=== PATIENT | male | born 1960 | race Caucasian/White ===

== ENCOUNTER 2017-11-02 01:22 | Inpatient (IN) | payer OTHER ==
--- NOTE | 2017-10-28 16:45 | PN- Neurosurgical ---
Surgical Brief Attending Note Brief Attending Note: 57-year-old right-handed gentleman seen in consultation from Jelani Salomon MD on 10/19/2017. I am seeing him for mechanical back pain associated with severe claudication. Since June 2016 he has been complaining of mechanical back pain radiating into his thighs, worse on the left than on the right. He is admitted for multiple years episode of back pain with these were short in duration and resolved rapidly which is not the case for this present episode. Of the greater part of his symptoms on his legs, worse with activity, standing and walking, somewhat improved with rest He has had 2 epidurals at L3 4 which did seem to improve before. Of time. Physical therapy and chiropractic treatment without relief His review of systems negative for bowel or bladder dysfunction Past medical history apart from usual childhood disorders is positive for hypertension and hypercholesterolemia He has no allergies to medication. He is taking metoprolol lisinopril atorvastatin Zetia. He does not have sleep apnea. He quit smoking 2 months ago has 1 drink a day There is a family history of cancer in his mother, lung cancer in his father, cancer in a sister Examination he stands 510 and weighs 226 pounds. He is a slightly guarded gait and posture. There is limitation of bending to about 15-20 hyperextension to about 20. He is able to stand on heels and tiptoes. Motor strength is 5 over 5 in all groups. Sensory examination is within normal limits. The tendon reflexes are trace present at the knee with enhancement trace present at the ankles toes are downgoing. There is negative straight leg raising. He is tender to palpation of the sacroiliac region, worse on the left than the right He has a combination of mechanical back pain and an L4 radiculopathy on the left L3 radiculopathy bilaterally. CT scan shows grade 1 retrolisthesis L2 3, diffuse osteophyte complex and facet arthropathy bilaterally using the severe canal stenosis and severe bilateral foraminal stenosis. At L3 4 and as a large hypertrophic facet on the left with severe central canal stenosis and severe left and moderate to severe right foraminal stenosis is being admitted for decompressive laminectomy L2 3 L3 4 to be followed with fusion Thank you for this consultation
[~2017-11-02] VITALS: Ht 177.8 cm; Wt 103.9 kg
[~2017-11-02 01:22] MED LIST: ATORVASTATIN CA80 M1 PO; FLOMAX0.4 M1 PO; LISINOPRIL40 M1 PO; TOPROL XL25 M1 PO; ZETIA10 M1 PO
[2017-11-02 14:13] LABS: ABSOLUTE BASOPHIL COUNT 0 /CUMM (0.0-0.2); ABSOLUTE EOSINOPHIL COUNT 0 /CUMM (0.0-0.7); ABSOLUTE GRANULOCYTE CT 13.5 /CUMM (1.4-6.5); ABSOLUTE LYMPH COUNT 0.5 /CUMM (1.2-3.4); ABSOLUTE MONOCYTE COUNT 0.3 /CUMM (0.10-0.60); BASOPHIL % 0.1 % (0.0-2.0); EOSINOPHIL % 0.1 % (0-5); HEMATOCRIT 40.6 % (42-52); MEAN CORPUSCULAR HGB 33.2 PG (27.0-31.0); MEAN CORPUSCULAR HGB CONC 34.2 G/DL (33.0-37.0); MEAN PLATELET VOLUME 7.5 FL (7.4-10.4); PLATELET COUNT 251 /CUMM (130-400); RBC DISTRIBUTION WIDTH 12.7 % (11.5-14.5); RED BLOOD CELL CT 4.18 /CUMM (4.70-6.10); WHITE BLOOD CELL COUNT 14.3 /CUMM (4.8-10.8)
[2017-11-02 14:29] LABS: GRANULOCYTE % 94.2 % (42.2-75.2)
--- NOTE | 2017-11-02 15:28 | Operative Report ---
Operative/Inv Procedure Report Surgery Date: 11/02/17 Name of Procedure: #1 decompressive lumbar laminectomy L2 3 L3 4 #2 left medial facetectomy L2-3 right L3 4 #3 preparation of space for fusion L2-3 #4 insertion of cage L23 As secondary #5 preparation of space for fusion L3 4 #6 insertion of cage L3 4 right sided #7 stealth registration #8 stealth guided insertion of pedicle screws L2 L3-L4 bilateral #9 bilateral arthrodesis L2 through L4 #10 installation of vancomycin powder Pre-Operative Diagnosis: Lumbar spinal stenosis L2 3 L3 4 Post-Operative Diagnosis: Same Estimated Blood Loss: 1700 Surgeon/Sock Mender: Aime CURTIS,Jelani Rouse(co-surgeon) MD Myrick Michael Anesthesia: general endotracheal tube Monitors: neurophysiology IV Fluids: see anesthesia note Implants: see 's note At L2-3,[id number] cage Urine Output: satisfactory Drains: 2 hemovacs Specimens: none Microbiology: none Tourniquet: none Complications: none Condition: stable Operative Indication: 57-year-old man with significant back pain worsens with the thigh pain over the last year with some improvement with epidural injections but failure of all other conservative measures. Indications for surgery alternative risks and possible complication were discussed at length. Patient elected to have surgery performed O guarantees given all questions answered Operative/Procedure Note Note: The patient was brought in supine intubated supine placed on the Ang table and all surfaces were well verified to be padded After receiving 2 g of intravenous antibiotics and 8 mg of Decadron the back was prepped and draped in usual sterile manner infiltrated with 10 mL of Xylocaine and epinephrine and sharp dissection was carried down to the aponeurosis which was taken down on both sides of the midline and a subperiosteal elevation the muscles performed. A marker was placed under the lamina of 2 and under the lamina of 3 and confirm the positions following this the spinous processes of 2 and 3 were removed the lamina of 2 was completely removed with 3 and 4 mm Kerrisons and the lamina of 3 likewise the medial facets were attacked then with 3 mm Kerrisons and the amount of stenosis was then taken down and a noticeable facetectomy was accomplished at L2-3 on the left side at L3-4 on the right side the dural sac was completely decompressed and significant foraminotomy was accomplished on both sides at both levels Following this attention was directed towards the L2-3 space. DBF graft on was reconstituted with blood We Carmen retraction the dural sac was retracted the disc space entered with 11 blade knife and then using a 6 mm dilator followed by 8 mm dilator then by a 9 mm dilator and ultimately a 10 mm dilator the space was increased to its maximum safe of value. Cutters were used to remove disc material and soft tissue and so was aggressive curettes to prepare the space for fusion. Following this after packing the space with autologous bone and DBF graft on under continuous C-arm and electrophysiological monitoring a 10 x 24 x 4 fuse cage of titanium packed with DBF graft on and bone was inserted in the standard fashion without any complications Following this the same procedure was repeated at the L3 4 space coming all this time on from the right side and C Jelani Salomon MD's note for that following this the O arm was brought in and after some issues with opening closing of the O arm we were able after registering versus the instruments for the Stealth used to insert pedicle screws at L3-L4 and L5 bilaterally and please see Jelani Salomon MD's note for this following this and verified electrophysiologically to be satisfactory both a combination of bone and DBF and pro Genex were used in both gutters after drilling to prepared of space for fusion on the transverse processes of 2 and 3 and 4 bilaterally and the medial facets stenosis was accomplished 2 Hemovacs were were placed and the patient closed there were no intraoperative complications sponges and count were correct blood loss was approximately 1800 mL. Neurophysiological monitoring remained normal at the end of the case Findings: All tight stenosis, hard disc bilaterally at both levels Discharge Disposition: PACU Additional Comments: Nonenone CC: Aime CURTIS,Jelani Rouse; Michelle CURTIS,Vega Bryant
--- NOTE | 2017-11-02 18:06 | RADIOLOGY REPORT ---
EXAMINATION: CR ABDOMEN/INTRAOPERATIVE FLUOROSCOPY CLINICAL INDICATION: Lumbar spine fusion L2-L4 with o-arm. COMPARISON: Lumbar spine films dated 08/22/2016. TECHNIQUE/FINDINGS: Fluoroscopic equipment was dedicated to the operating room for the performance of an intraoperative procedure. Several (10) spot films were acquired and are archived in PACS. Please refer to operative notes for procedural detail. FLUOROSCOPY TIME: 1 minute 33 seconds. IMPRESSION: Administrative dictation for intraoperative fluoroscopy and image archiving in PACS. Please refer to operative notes for details.
[2017-11-02 18:07] VITALS: BP 104/62
[2017-11-02 20:47] VITALS: BP 106/60
--- NOTE | 2017-11-02 22:31 | Operative Report ---
Operative/Inv Procedure Report Surgery Date: 11/02/17 Name of Procedure: 1) L2 Bilateral Decompressive Hemilaminectomies, L2-L3 Posterobilateral Osseous Element Lateral Recess And Foraminal Decompression (Bilateral Partial Medial Undercutting Facetectomies And Bilateral Medial Expanding Foraminotomies) , Lateral Recess Epidural Neurolysis As Needed And Complete Posterobilateral Neural Element Decompression (Ramez/Aime) 2) L3 Bilateral Decompressive Hemilaminectomies, L3-L4 Posterobilateral Osseous Element Lateral Recess And Foraminal Decompression (Bilateral Partial Medial Undercutting Facetectomies, Right Medial Expanding Foraminotomy And Left Partial Unroofing Foraminotomy), Lateral Recess Epidural Neurolysis As Needed, And Left Decompressive Discectomy For Complete Posterobilateral Neural Element Decompression (Ramez/Aime) 3) L2-L3 Multicolumn (Anterior Column Interbody And Posterobilateral Column Osteoarticular Element/Intertransverse Process) Instrumented Fusion Using Morselized Nonstructural Locally Harvested Autograft Augmented With Nonstructural Allograft Substitute Osteopromotive Material (Aime-Ramez [facility]- Sur[facility]) 4) L3-L4 Multicolumn (Anterior Column Interbody And Posterobilateral Column Osteoarticular Element/Intertransverse Process) Instrumented Fusion Using Morselized Locally Harvested Autograft Augmented With Nonstructural Allograft Substitute Osteopromotive Material (Aime-Ramez [facility]) 5) L2-L3 Implantation Of Left Midline Interbody Cage Instrumentation ( Aime/Aracelisk) 6) L3-L4 Implantation Of Left Parmedian Interbody Cage Instrumentation ( Aime/Aracelisk) 7) L2-L4 Implantation Of Posterobilateral Rhljwef-Tgvgd-Qcp Segmental Instrumentation (Aime/Aracelisk) 8) L2-L4 Stealth Frameless Stereotactic Computer-Assisted Spinal Navigational Placement Of Posterobilateral Pedicle Screw Instrumentation ( Aime) 9) Preparation And Implantation Of L2-L4 Interbody And Posterobilateral Intertransverse Process Nonstructural Allograft Substitute Osteopromotive Material (Aime) 10) [place], Preparation And Implantation Of L2-L4 Interbody And Posterobilateral Intertransverse Process Nonstructural Morselized Local Autograft (Aime) Pre-Operative Diagnosis: Primary Surgically Treated Diagnoses: 1) L2-L3 And L3-L4 Bilateral (Left Greater Than Right) Lumbar Intervertebral Disc Disorder (Degenerative Disk Herniation) With Directly Associated Moderate Left Mid-Lumbar Distribution Proximal Lower Extremity Radiculopathy (Anterior Thigh Radiating Pain And Subjective Numbness Without Motor Deficit Or Exacerbation On Provocative Testing Generally Consistent With The L3 Traversing L2-L3 And Exiting L3-L4 Nerve Root Radicular Distribution) (* = Refer Here As Well As Elsewhere In This Diagnosis List And Document For Detailed Radiculopathy Symptom And Finding Description) 2) L2-L3 And L3-L4 Bilateral (Left Greater Than Right) Lumbar Spondylosis With Secondarily Directly Associated Moderate Bilateral (Left Greater Than Right ) Mid-Lumbar Distribution Lower Extremity Radiculopathy* 3) L2-L3 And L3-L4 (L2-L3 Left And L3-L4 Bilateral Left Greater Than Right) Severe Bilateral (Left Greater Than Right) Zone (Moderate Bilateral Recess And Severe Bilateral Foraminal Osseous And Hypertrophic Degenerative Soft Tissue, Exacerbating Degenerative Herniated Nucleus Pulposus And Degenerative Fibrotic Soft Tissue) Lumbar Spinal Stenosis 4) L2-L3 And L3-L4 Severe Degeneration Of Lumbar Intervertebral Discs Associated With Significant Disk Space Collapse, Vacuum Phenomenon, Bilateral ( Left Greater Than Right) Vertical Foraminal Narrowing Contributing To Osseous Foraminal Stenosis, Bordering Endplate And Vertebral Body MRI (Modic) Signal Changes As Well As Severe Radiographic And CT Endplate And Vertebral Body Spondylotic, Sclerotic And Erosive Radiologic Findings With Clinical Features In Addition To The Associated Radiculopathy Described Elsewhere In This Diagnosis List 5) L2-L3 And L3-L4 (L2-L3 Right Greater Than Left Lateral Recess And Intraforaminal; L3-L4 Left Greater Than Right Lateral Recess, Intraforaminal And Extraforaminal Greater Than Central) Broad Based Intermediate-Sized Neurocompressive Degenerative Displacement Of Lumbar Intervertebral Disks Associated With Neural Element Encroachment As Well As Clinical Features Beyond The Radiculopathy Described Elsewhere In This Diagnosis List Including Contributing To The Soft Tissue Component Of Spinal Stenosis At The Herniation Levels 6) L2-L3 And L3-L4 Lumbar Spondylosis Associated With Clinical Features Beyond The Radiculopathy Described Elsewhere In This Diagnosis List 7) L2-L3 And L3-L4 Clinical And Radiologic Findings Consistent With Moderate And Clinically Significant Degenerative Spinal Segmental Instability Likely Associated With Exacerbation Of Bilateral Foraminal Encroachment And Positional Or Activity-Related Stenotic Symptoms Described Elsewhere In This Diagnosis List 8) Severe Activity And Functionally Limiting, Intermittently Disabling Mid- Lumbar Region Lower Back Pain 9) L3 Bilateral (Left Greater Than Right) Associated Proximal And Concurrent Distal Lower Extremity Radiculopathy* Including Some Features Likely Directly Associated And Other Features Likely Independent Of Concurrent Intervertebral Disc Disorders And Spondylosis (Described Elsewhere In This Diagnosis List) 10) 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 Motion Segment With Diffuse Bone On Bone Contact) Secondary Surgically Treated Diagnoses: 11) L2-L3, L3-L4, L4-L5 And L5-S1 Peridiscal Subchondral Endplate Level And S1 Intraosseous Vertebral Body Level Cystic Change 12) L2-L3 And L3-L4 Bilateral Degenerative And Inflammatory Lateral, Ventrolateral And Ventral Zone Lateral Recess, Foraminal And Disk Margin Adherent But Not Tethering Or Compressive Inflammatory And Degenerative Lumbar Epidural Fibrosis 13) L2-L3 And L3-L4 Bilateral Moderate Degenerative Lumbar Spinal Facet Osteoarthritis 14) L2-L3 And L3-L4 Bilateral Moderate Hypertrophic And Neurocompressive Partially Lateral Zone Stenosing Degenerative Lumbar Spinal Facet Osteoarthritis 15) L2-L3 And L3-L4 Bilateral Erosive Degenerative Lumbar Spinal Facet Arthropathy 16) L2-L3 And L3-L4 Bilateral Neurocompressive Degenerative Lumbar Spinal Facet Instability Associated With "Open Facet Sign", Subluxation (Retrolisthesis ) And Autopseudoarthrosis With Symptomatic Translational Frhs-Mi-Fand Micromotion Secondary Perioperatively Relevant Diagnoses: 17) Bilateral Concurrent Lower Extremity Distal (Extensor Hallucis Longus) Motor Deficit Possibly Physiolgic In This Patient Or Related To More Proximal Level Neurocompression 18) Severe Diffuse Lumbar Regional Spinal Degenerative Arthritis ( Spondylopathy) Comorbid Diagnoses: 19) Moderate Obesity By World Health Organization Criteria 20) Very High Body Mass Index (BMI = 33.4) Potentially Adversely Affecting Acute And Tariff Counsel Lumbar Spine General And Surgical Orthopaedic Treatment As Well As Surgical And Overall Health Outcomes Post-Operative Diagnosis: Same as preoperative diagnosis list with the addition of: Intraoperative Surgically Treated Diagnoses: 1) L2-L3 And L3-L4 Exacerbated Preoperative And New Intraoperative (Post- Decompression And Pre-Instrumentation) Significant Nulticolumn Structural Element Destabilization Secondary To Required Extensive Osseous Decompression Above And Beyond Preoperatively Documented Segmental Instability With Axial Disk Space Collapse Associated With Severe Increase In Transpedicular Foraminal Narrowing Requiring Acute Intraoperative Instrumentation For Stabilization, Transpedicular Foraminal Distraction And Height Yazidi As Well As For Optimization Of Fusion Potential, Overall Surgical And Functional Outcome Intraoperative And Postoperative Diagnoses Relevant To Postoperative Care: 1) L2-L3 And L3-L4 Potential Increased Postoperative (Post-Decompression, Post-Instrumentation And Pre-Arthrodesis) Microinstability Under Cyclic Loading Even With Multicolumn Instrumentation Indicating Early Postoperative Motion And Activity Limitation As Well As Circumferential Buttressed Lumbar Compression Orthosis Use For Optimized Symptom Control, Stabilization, Fusion, Postoperative Function And Overall Outcome 2) Expected Acute Postoperative Lumbar Region Pain Requiring Postoperative Intravenous Narcotic Analgesic Pain Medication And Inpatient Nursing Observation Following Complex And Extensive But Uncomplicated Multilevel Lumbar Decompression And Multicolumn Instrumented Fusion 3) Expected Acute Postoperative Lumbar Region Muscular Spasm Requiring Postoperative Muscle Relaxant Medication And Inpatient Nursing Observation Following Procedure Documented Above 4) L2 And L3 Laminar (And Adjacent Interlaminar) Level Acute Lumbar Region Bilateral Dorsal Central (Laminar) And Posterobilateral (Facet And Dorsal Foraminal Wall) Osseous Decompression Postprocedural Status 5) L2-L3 And L3-L4 Lumbar Spinal Region Early Postprocedural Instrumented Arthrodesis Status 6) Potential For Acceleration Of Bone Healing Relative To The Standard Healing Likelihood And Timecourse For The Extent (Number Of Levels) Of Arthrodesis Performed Due To The Multilevel Nature Of The Patient's Procedure, The Need For Partial Augmentation Of Fusion Mass Using Allograft Substitute Osteopromotive Material, Recent Smoking History, Diffuse Erosive Spinal Arthritic Process And Potential For Acute Cyclic Loading Microinstability As Noted Above In This Patient Whose Stated Goal (With Reasonable Postoperative Potential) Is To Return To Vigorous Function Following This Procedure All Of Which Are Indications For The Use Of An External Pulsed Electromagnetic Field Stimulation Device To Likely Optimize And Potentially Accelerate Osseous Fusion Formation Estimated Blood Loss: 1800 cc estimated blood loss with 1200 cc cell saver return Surgeon/Job Superintendent: DEANNA SMITH MD - Primary Admitting Orthopaedic Spine Co-Surgeon DONNIE MYRICK MD - Primary Consulting Neurological Spine Co-Surgeon Surgical Providers: Regarding Orthopaedic Spine Portion Of Procedure Dictated Here: Deanna Smith M.D. - Orthopaedic Spine Surgeon (Co-Surgeon/Primary Admitting Surgeon) Donnie Myrick M.D. - Neurosurgeon (Co-Surgeon/Job Superintendent Surgeon) See Neurosurgical Operative Report Regarding Surgical Provider Designation For Neurosurgical Spine Portion Of Procedure Anesthesia: general endotracheal tube Monitors: Standard general anesthesia and other perioperative monitoring was performed per anesthesia protocols. Standard Intraoperative EMG, SSEP and MEP electrophysiological monitoring was performed per protocol (NeuroAlert). Refer to anesthesia and intraoperative electrophysiological monitoring records for details. IV Fluids: Standard anesthesia perioperative fluid management was performed without requirement for additional or emergent fluid resuscitation. Refer to anesthesia and cell-saver records for details. Implants: Implants Placed: Posterolateral Lumbar Region Interbody Implants: [employer] F[employer] Titanium Posterolateral Interbody Cage Implants: 1 x 10 mm Height x 9 mm Width x 24.5 mm Depth x 4 Degree Lordosis On The Left At L2-L3 1 x 10 mm Height x 9 mm Width x 24.5 mm Depth x 4 Degree Lordosis On The Right At L3-L4 Posterobilateral Lumbar Region Transpedicular Transvertebral Implants: Anser Innovationa ATS System Posterobilateral Transpedicular Transvertebral Jwperzx-Acgov-Kue Construct: 1 x 6.5 mm Diameter x 60 mm Length Dual Thread Pitch Pedicle Screw On The Right At L4 1 x 6.5 mm Diameter x 55 mm Length Dual Thread Pitch Pedicle Screw On The Left At L4 2 x 6.5 mm Diameter x 55 mm Length Dual Thread Pitch Pedicle Screws One On Each Side At L3 2 x 5.5 mm Diameter x 55 mm Length Dual Thread Pitch Pedicle Screws One On Each Side At L2 2 x 4.75 mm Diameter x 60 mm Length [place]-Chrome Rods: One On Each Side Interconnecting The L2, L3 And L4 Pedicle Screws Graft Placed: Autograft Placed: Morselized Locally Harvested Autograft Harvested From: Resection Of L2 And L3 Spinous Processes L2 And L3 Interpedicular Bilateral Hemilaminectomies L2-L3 And L3-L4 Bilateral Facetectomies And Foraminotomies Placed At L2-L3 And L3-L4 In Anterior And Posterobilateral Columns Filling The Central Chamber Of Each Interbody Cage (At L2-L3 And L3-L4) In The Disk Space Anterior To And Surrounding Each Interbody Cage (At L2-L3 And L3-L4) In The Bilateral Intertransverse Posterolateral Spaces (From L2 To L4) Allograft Placed: Nonstructural Processed Allograft Substitute Osteopromotive Material Placed: Climeworks Gosper DBF (2 x 6 cc Containers = Total Of 12 cc) 3 cc Placed In Each Intervertebral Disk Space Anterior To The Cages At L2-L3 And L3-L4 3 cc Placed On Each Side Overlying Autograft In Each Posterolateral Intertransverse Space From L2 To L4 Urine Output: Refer to anesthesia records for details. Drains: Large bore (15 Ukrainian) subfascial DENEEN drains x 2 to medium bulb suction reservoir. Fenestrated portions of drain tubes placed in each posterolateral intertransverse space (lateral gutter) with unfenestrated portion through deep muscle, fascia, subcutaneous tissue, and skin of bilateral superolateral aspect of surgical site koehler without suture fixation. Specimens: Removed L2-L3 and L3-L4 lumbar disk fragments sent to pathology for analysis per hospital protocol. Complications: None Operative/Procedure Note Note: Preoperative Holding Area Assessment/Preparation: The patient was evaluated in the preoperative holding area shortly prior to surgery and no significant clinical changes or contraindications to the scheduled surgical procedure were evident compared to the normal preoperative baseline axial and radicular lumbar symptoms documented on office and clearance general, neurovascular, and musculoskeletal assessments. Specifically, he continues to report his originally presenting preoperative constant baseline and mechanically exacerbated axial pain along with subjective radiating bilateral proximal lower extremity pain and numbness localizing to the anterior thighs without significant objective physiologic or functional deficit on previous or current preoperative examinations. His only consistent deficit is a subtle bilateral and symmetrical extensor hallucis longus weakness which may be physiologic for this patient or possibly a subtle effect of traversing root compression at one of his more proximal intended operative levels. He has had neither significant subjective or objective improvement despite a prolonged and comprehensive conservative management treatment program with excellent compliance to the patient's maximal ability and tolerance. As in the office, he was otherwise neurovascularly and musculoskeletally intact in both lower extremities with no other new findings or reported exacerbation of his subjective symptoms. There were no new or clinically significant multiple, bilateral or sacral root distribution sensory, motor, abherent or hyperactive reflex, coordination, ambulatory or other functional reported or observed symptoms or signs on immediate preoperative examination to suggest acute neurological or musculoskeletal change, increase in lumbosacral region neural element compression or impending neurological deficit that would suggest or might be associated with potential increased neurological intraoperative risk or necessitate an alteration in the proposed treatment plan. The patient showed no signs of pulmonary obstruction, restriction, cough or other respiratory abnormality that might be associated with his history of smoking. The surgical plan and site were confirmed with the patient and preoperative paperwork was finalized. The region of the intended surgical site was cleansed, prepped and marked per protocol. The surgeons, anesthesia care team members, and operating room staff verified the patient identity, surgical procedure, and operative site as well as other clinical details with the patient in an initial documented preoperative confirmation (awake time out) prior to the administration of significant sedation or anesthesia. Prior to receiving any preoperative medications, the patient confirmed his NPO status since midnight. Surgical Procedure: Dr. Smith and Dr. Myrick were both present for and participated equally as co-surgeons in all clinically significant phases of the surgical procedure documented below as well as for all critical intraoperative and perioperative decisions and interventions. The set-up, positioning, frameless CT-referenced stereotactic analysis and guidance, disk space and posterobilateral osseous element fusion surface preparation and decortication, stabilization with implantation of multicolumn (interbody cage and posterobilateral pedicle-screw- linda construct) instrumentation, multicolumn (interbody and posterobilateral intertransverse-process space) arthrodesis and closure portions of the procedure are described in greatest detail in this operative report. Refer to Dr. Myrick s Neurosurgical operative report for additional details particularly regarding the electrophysiological monitoring, exposure, osseous and soft tissue decompressive (including bilateral hemilaminectomies, facetectomies and foraminotomies), epidural neurolysis, discectomy, osteophytectomy, and confirmation of neural element decompression portions of the procedure. Although the patient does meet the World Health Organization criteria for obesity (with BMI = 33.4 which may impact his perioperative care, prognosis and/ or outcome), his body habitus did not seem to add significantly to the complexity of the patients surgical care in this case and so, unless his postoperative care is made unexpectedly complex due to this factor, no procedural service modification will be designated. Set-Up/Positioning/Exposure - The patient was brought to the operating room in stable condition and underwent uncomplicated induction of general anesthesia, intubation, and placement of all appropriate monitors, lines, tubes and catheters without difficulty. Administration of 2 grams of IV Ancef based on patient body mass (102.5 kg) was given for surgical prophylaxis and was completed at least 30 and less than 60 minutes prior to making an incision. This antibiotic dose was repeated at four hour intervals throughout the procedure per standard operative protocols. Steroid medication (Decadron 4 mg IV) was requested by anesthesia for nausea prophylaxis, approved by the surgeon, and administered shortly after intubation. The patient was positioned prone on the Ang operating table in standard fashion for a mid-lumbar decompression, discectomy and multicolumn instrumented fusion taking care to protect and stabilize the spine during transfer, avoid positions of nerve stretch, pad all pressure points, and support the head without any pressure on the eyes using a foam head rest and head-holding frame. Electrophysiological monitoring electrodes were applied per standard monitoring protocol. The arms were abducted less than 90 degrees at the shoulders, flexed less than 90 degrees at the elbows and supported on well-padded arm-boards with additional foam padding from the axillary regions to the hands. All pressure points were either fully padded or suspended without any contact at all between pads. Baseline preoperative electrophysiological monitoring readings were obtained and no gross abnormalities were noted with no asymmetry or other finding identified to suggest previously undetected and occult compression or neurophysiologic deficit. A cross-table lateral fluoroscopic image was obtained with a skin marker in place to determine the optimal level for incision, to document optimized intraoperative lumbar alignment, and to confirm acceptable radiologic visualization as well as definitive numerical identification of the intended operative levels with sufficient detail down to the lower lumbar and lumbosacral junction regions throughout the procedure. The approach, exposure, hemostasis, retractor placement, fluoroscopic identification of intended operative level, laminar resection, facetectomy, foraminotomy, limited epidural neurolysis, osteophytectomy, decompressive discectomy and final neural element assessment portions of the procedure are dictated in greatest detail by Dr. Myrick in his Neurosurgery operative report and are only briefly summarized here. Refer to that document for additional details. The surgical field was prepped and draped using standard sterile technique with Duraprep, sterile towels, an Ioband incise drape and an edge- adhesive rectangular surgical field drape. Prior to beginning the procedure, the surgeons, anesthesia care team, and operating room staff again reviewed the patient identity, surgical procedure, operative site and other information specifically critical to the operative management of the patient in a final documented confirmation ("final time out") per standard hospital and [facility] protocol. In brief summary, after sterile prep and drape as described above, a midline surgical incision was mapped, marked with a sterile surgical marker, infiltrated with local anesthetic, and made using a #10 scalpel blade extending longitudinally from the palpated superior tip of the L1 spinous process to the superior tip of the L5 spinous process overlying the intended L1-L2, L2, L2-L3, L3 and L3-L4 operative laminar/vertebral and interlaminar/disk levels as well as the middle and inferior aspect of the L5 spinous process additionally required for optimal stereotactic reference frame fixation. Hemostasis was achieved using Bovie and Bipolar electrocautery as well as Aquamantys bipolar radiofrequency hydrothermal hemostatic vascular sealer beginning with the incision and continuing throughout the procedure with settings appropriate to each progressive level. The paramedian lumbosacral fascia was divided on both sides of the fluoroscopically localized L2, L3 and L4 spinous process tips as well as the interconnecting interspinous ligament segments between them using the Bovie electrocautery. Care was taken to preserve the midline interspinous ligamentous tissue complexes as much as possible at all levels until the initially dissected levels had been confirmed to be the intended operative levels by fluoroscopic localization. The dissection was then carried down the left side of the middle aspect and inferior margin of the L3 spinous process as well as the superior margin of the L4 spinous process to the medial laminar interface at the base of the spinous processes and finally extended laterally to expose the corresponding inferior L3 and superior L4 laminae as well as the intervening left L3-L4 interlaminar space at that level using straight and curved curettes. This dissection was extended laterally out to the medial margin of the facet capsule which was preserved. The dissected interlaminar space was marked with a Adam dissecting instrument placed under the inferior leading edge of the superior lamina and confirmed to be at the intended interspace on cross-table lateral fluoroscopic image. Intraoperative findings of multilevel mid- and lower lumbar moderate to severe degenerative disk disease, spondylosis and hypolordosis appeared unchanged from the preoperative radiologic studies and no obvious interval change or additional abnormality was noted. The overall alignment of the visualized lumbar spine on this intraoperative localization radiograph was noted to be otherwise normal and unchanged from preoperative office studies. Once the appropriate levels were fluoroscopically confirmed, the fascia was fully divided on both sides of the L2, L3 and L4 spinous process tips and dissection was continued bilaterally to fully expose the intended laminar ( inferior L1, complete L2 and L3 and superior L4) and interlaminar (L1-L2, L2-L3 and L3-L4) levels out to the capsules of the corresponding facet joints which were initially preserved on both sides. Bovie and Bipolar electrocautery as well as a Ramirez elevator were then used to dissect over the facet joints, down the lateral margins of the facets (taking care to maintain hemostasis of the faceteal vessels where necessary), over the dorsal surfaces of the L2, L3 and L4 transverse processes and over the L2-L3 and L3-L4 intertransverse membranes out to the lateral level of the transverse process tips. Once this dissection was completed, the lateral gutters were thoroughly irrigated, deep Gelpi retractors were placed for optimal exposure and the intertransverse regions were packed bilaterally with counted moist sponges. Attention was then turned to the midline decompression. Laminofacetectomy/Discectomy/Epidural Neurolysis/Neural Element Decompression - The lateral margin of the pars interarticularis of L2 and L3 were identified bilaterally so as to insure that the posterolateral osseous decompression did not approach, thin or destabilize these regions. The L2 and L3 spinous processes were debrided of periosteal soft tissue and attached interspinous ligament, resected en bloc at their bases and morselized for later reimplantation as local autograft. Bilateral hemilaminectomies were performed at both the L2 and L3 levels by piecemeal resection of the laminar bone using Kerrison rongeurs after dissecting under the leading edge with a curved curette to free any underlying adhesions. Where possible the ligamentum flavum was left in place during the osseous decompression as a protective layer and then later removed using Kerrison rongeurs to complete the dorsal central canal and dorsobilateral recess region decompression where the ligament contributed significantly to the neural impingement. 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 The epidural fibrosis appeared to be causing moderate tethering and likely some transient pistoning and/or longitudinal traction irritation to the traversing neural structures at these levels consistent with and likely contributing significantly to the patient's baseline and claudicating radiating symptoms. Untethering epidural neurolysis was therefore indicated and, in fact, necessary in order to adequately decompress and mobilize the neural elements. Fortunately, the patient's central compression was not as prominent as his lateral recess component and thus his dorsal thecal sac had only minimal adherent fibrosis providing a clear epidural plane for dissection into the more involved lateral recess zones. Before the extent of involvement and requirement for neurolysis could be determined, the osseous lateral recesses were decompressed by extending the posterolateral osseous resection to the moderately hypertrophic overhanging medial facets. A curved curette was used to dissect in the subperiosteal and pericapsular plane along the medial wall of the facet in the lateral recess of the canal. The medial facetectomy was then performed using Kerrison rongeurs. With the lateral recess better exposed and mostly decompressed of osseous ( hypertrophic medial facet) and soft tissue (hypertrophic posterolateral ligamentum) impingement the subperiosteal dissection could be safely continued down the medial wall of the pedicle to the ventrolateral floor of the canal. During this dissection the vertical extent, thickness, adherence and compliance (density and pliability) of the epidural fibrotic tissue could be better appreciated along with its contribution to neural element tethering and compression. The epidural fibrosis was clearly more extensive, causing more focal and diffuse compression and more likely contributing to symptoms than usual even for most similar, very degenerative but previously unoperated cases. This greater than usual involvement and effect was probably related to the patient's underlying spondylopathy. In fact, the degree of epidural fibrosis in this case was more in the average range of a revision case than a previously unoperated case. The neurolysis which was necessary extended into the ventral canal bilaterally and, along with the need for decompressive discectomy, required well above average duration and specialized skill of both surgeons compared to even a complex bilateral hemilaminectomy. On the other hand, the tethering was fairly focal, a dissection plane was available in the midline and there was no circumferential constriction requiring extensive and high risk complete epidural debridement and release of adherent fibrous tissue for decompression and therefore the neurolysis required to safely complete the remaining components of the procedure was felt to be within a reasonable range for a complex unoperated (similar to an average revision) decompression and was therefore considered as a reasonably included component of that procdeure without requiring a separately designated procedural service. Once the neural elements had been untethered from the lateral wall of the canal , several small areas of focal epidural adherent, dense and hypertrophic fibrotic compressive tissue had to be dissected from the thecal sac in the epidural plane and resected. This was successful in finally decompressing the dorsal and lateral surfaces of the neural structures as well as improving their compliance and decreasing longitudinal tension during retraction which was necessary to gain access to the disk space so as to successfully complete the interbody instrumented fusion portion of the procedure. With the lateral recess exposure complete and as the neural elements were being first mobilized, the exiting root was noted to be further tethered by fibrotic tissue into the medial foraminal exit zone. Fortunately, the subperiosteal plane which was previously defined within the lateral canal could be readily extended into the foraminal region using curved curettes for subperiosteal dissection and this allowed a more extensive, subtotal medial facetectomy and partial unroofing foraminotomy to be safely performed using Kerrison rongeurs for resection. Osseous decompression and periosteal untethering appeared sufficient to resolve any neural element tethering in this zone and so no additional higher risk epidural dissection was required. Gentle medial retraction revealed additional fibrotic tissue adherent to the ventral thecal sac and floor of the canal. Additional neurolysis was required in this ventrolateral zone to untether the neural elements from the underlying disk protrusion and mobilize the neural elements medially. This was accomplished using a Warrington 4 and Chandler curette. As with the other zones of neurolysis, this was significantly more complex than most (even very degenerative) cases but still felt to be within the scope of standard bilateral hemilaminectomy decompressive procedure. Once the neural elements were untethered, mobilized and safely retracted with a Love nerve root retractor, the lateral disk herniation could be appreciated causing elevation and ventral compression to both the exiting root in the foraminal exit zone and the traversing neural structures within the lateral canal consistent with preoperative MRI findings. The extensive compression in the bilateral recess and medial foraminal zones secondary to stenosis, disk herniation and epidural fibrosis was associated with hyperemia of the nerve root meninges, inflammation and irritation consistent with the severity, chronicity and poor response to conservative measures of the patient's static and claudicating symptoms and funcitonal deficits confirming the indications for surgery. All of these findings also suggested that improvement would have been unlikely with further conservative management and without surgical intervention. With the perineural dissection, neurolysis and exposure of the contained disk herniation fragments complete at both levels, the traversing nerve root and thecal sac was first gently and safely retracted using a Love nerve root retractor on the right at the lower of the two operative levels (the L3-L4 level ) so as to expose the disk space while protecting the neural elements. This exposure allowed safe annulectomy using a #11 scalpal blade followed by complete decompressive discectomy of the primary intraforaminal herniated fragment and any remaining loose or nonviable intradiscal fragments using standard technique with pituitary rongeurs. Epidural hemostasis was achieved using Bipolar electrocautery and gentle packing of the epidural space with small volume of Thrombin soaked Gelfoam held with Patties which also provided some medial retraction of the neural elements for optimal exposure of the disk space. All resected disk material was sent to pathology for analysis per hospital protocol. Before proceding with the decorticating discectomy and interbody fusion, the decompression was again checked bilaterally to insure clear passage by a nerve hook and [place] instrument dorsal and ventral to the nerve root within the foramen without evidence of residual compression to the maximal depth palpable with those instruments. No significant irritability, hyperactive neural firing, muscle contraction or electrophysiological monitoring changes were noted at any time during the initial phase of the procedure, particularly during decompression and discectomy. Hemostasis of osseous and epidural bleeding was achieved using Thrombin soaked Gelfoam and paddies gently applied and removed by irrigation with all bleeding controlled. Bleeding from the laminectomy edge was controlled with small amount of bone wax applied using the back of a Warrington with any residua removed. Arthrodesis/Instrumentation - The fusion portion of the procedure including instrumentation and grafting of both the anterior and posterpbilateral columns is dictated in greatest detail in this operative report. Interbody arthrodesis was first performed at the L3-L4 level. The right L3-L4 facetectomy was expanded to a subtotal resection at the disk space level so as to provide sufficient access and neural element protection for safe interbody cage implant placement. All additional resected faceteal resected bone was cleaned of soft tissue, morselized, and saved in sterile saline along with the bone resected for decompression to be later reimplanted as autograft. With the disk space fully exposed and the neural elements retracted and protected with a Love nerve root retractor, the disk space was prepared and optimized for interbody arthrodesis by performing a subtotal decorticating discectomy (above and beyond the decompressive discectomy required, previously performed and documented above for neural element decompression to address the patient's significant and primary radicular symptoms). This was accomplished using standard technique starting with straight and angled pituitary rongeurs to extend the previous decompressive discectomy out to the more normal peripheral zones. Chondral endplate resection down to punctate cortical bleeding subchondral bone was then performed using sequential and alternating rotating distracting and decorticating paul. Endplate decortication was finalized using multiple straight and angled serrated curettes. As expected based on preoperative imaging, the disk space was extremely degenerative with minimal disk space and near [id number]-ux-[id number] contact palpable throughout the width and depth of the space. Although the degree of degeneration made it very likely that the anterior annulus was incompetent, there were no obvious defects detected on gentle palpation at the anterior and anterolateral disk space margins using the decorticating curettes noted above suggesting a fairly well preserved and competent annulus or the presence of dense fibrotic scarring which should contain the graft within the disk space. Care was still taken to avoid any projection of instruments, implants or graft material beyond the annular disk margin in any direction. Hemostasis was confirmed and the interspace and surgical site were thoroughly irrigated prior to placement of the anterior column interbody implant and central morselized autograft. The L3-L4 disk space was templated using standard sequential trialing technique ultimately documenting optimal fit and soft tissue tension with a standard trial of 10 mm height, 24.5 mm depth, 9 mm width and 4 degrees of lordosis. Fluoroscopic anterior-posterior and lateral images were obtained and documented optimal positioning, disk space and foraminal height hinduism and adequate segmental lordosis hinduism with good endplate support and distraction without endplate compromise. The fit of this trial was felt to be optimal and so a final implant of identical dimensions was selected. The selected implant was checked per operating room implant protocol both before and after opening and prepared with autograft compressed into the central chamber on the back table using standard technique. Approximately 5 cc of cleaned and morselized autograft and 3 cc of a 6 cc container of Medtronic [employer] Demineralized Bone Fiber (DBF) allograft substitute osteopromotive material was gently compressed into the anterior margin of the disk space and across midline anterior and contralateral to the intended position of the interbody cage taking care to avoid projection of graft beyond the confines of the grossly degenerative disk space and potentially incompetent annulus. Care was also taken to completely fill the height of the disk space with graft in these peripheral zones while avoiding excessive packing of graft in the intended path of the cage so that the graft would not impede optimal anterior placement of the cage or result in projection of graft outside of the disk space during cage impaction. The 10 mm height x 9 mm width x 24.5 mm depth x 4 degree lordotic angle Medtronic FUSE Titanium rotating lordotic implant central chamber was densely packed with morselized autograft such that graft was projecting slightly beyond the height of the implant so as to provide optimal graft-endplate contact after central disk space placement of the graft-filled implant and rotation into lordotic alignment per its design. The above prepared Medtronic FUSE anterior column interbody implant was then gently impacted into the interspace in the flat horizontal position until it was recessed well beyond the posterior vertebral body wall and endplate edge by visual inspection and on lateral fluoroscopic view. The cage was then further impacted until fluoroscopic lateral images documented the final position to be nearly to the anterior endplate edge of both adjacent vertebral bodies so as to provide optimal anterior distraction and final lordosis particularly following application of slight posterior compression using the [id number] construct as described below. Initial fluoroscopic anterior-posterior and lateral images, as well as oblique views where indicated for complete visualization, documented optimal interbody cage position with the anterior implant edge extending nearly to the anterior margin of the disk space. The cage was then rotated 90 degrees into final vertical lordotic position per the implant design. Final fluoroscopic views confirmed optimal final cage position and good hinduism of disk space and foraminal height, segmental (and later lumbosacral regional) lordosis. Once the interbody FUSE implant was in optimal position, excellent interference fit was documented with no motion visualized or palpated when moderate dorsally directed ("pull-out") force was applied to the cage using the captured impaction handle. The impaction handle was then removed and the posterior aspect of the cage was both visually and fluoroscopically confirmed to be fully recessed within the disk space, well below the edge of both endplates. The Love nerve root retractor was removed and the overlying traversing neural structures were allowed to return to their normal resting positions with no encroachment, contact or even close proximity noted to the interbody cage. No residual epidural fibrotic tethering or compression was noted. The shoulder and axilla of both traversing roots at this level were checked to insure that there was no significant tethering in either region which might be associated with compressive acute take-off ("kinking") at the nerve exit from the thecal sac. Attention was then turned to the L2-L3 level where similar final decompression and arthrodesis procedure was performed to that described for L3-L4 above. The L2-L3 dorsal, dorsolateral and lateral decompression as well as the epidural neurolysis and neural element mobilization portions of the procedure at this level were completed prior to L3-L4 discectomy and instrumented arthrodesis as described above. The L2-L3 final left ventrolateral canal dissection, neurolysis, neural element mobilization and decompressive discectomy were performed after all portions of the L3-L4 decompression and arthrodesis were completed. This final phase of L2-L3 ventrolateral decompression was identical in extent and technique with similar findings to that described above and in greatest detail in Dr. Myrick's neurosurgical operative report for L3-L4. Once the decompression had been completed (including decompressive discectomy of the documented intraforaminal herniation fragment causing deviation of the exiting nerve root correlating with clinical presentation and preoperative MRI findings) and clear passage of all neural structures was confirmed by palpation, the interbody instrumented arthrodesis portion of the procedure was performed which is described in greatest detail in this operative report. Identical interbody arthrodesis procedure was performed at L2-L3 on the left using similar technique and implant to that described above for L3-L4 on the right and with identical optimized final intraoperative assessment and results. After endplate preparation and decortication the anterior and anterolateral disk space was filled with the same volume of combined autograft and allograft material as that described for the L3-L4 level above using identical technique. Based on trial sizing, an identical type, height, width, depth and lordosis (10 mm x 9 mm x 24.5 mm x 4 degrees lordotic angle FUSE rotting lordotic cage) as that described above for the L3-L4 level was selected, centrally filled with morselized local autograft and gently impacted into the L2-L3 interspace with optimal anterior position, good interference fit and full hinduism of disk space height, foraminal height and stability by radiographic and gentle mechanical testing. Once the interbody instrumentation was completed optimally at both operative levels, epidural hemostasis was carefully achieved using small pieces of Thrombin soaked Gelfoam as well as FloSeal gently packed with paddies where necessary. Bone wax was also applied to the edges of the resected bone surfaces for any necessary additional osseous hemostasis. Attention was then turned to the posterobilateral screw-linda construct placement and stabilization.With the interbody implants optimally placed, attention was first turned to the application of intraoperative frameless stereotactic navigation ( including fixation of reference frame, acquisition of O-arm intraoperative CT scan, rendering of Stealth three-dimensional spatial maps, instrument registration and intraoperative navigation) for computer-assisted placement of posterobilateral [id number] transvertebral instrumentation. The reference grid was rigidly affixed to the long spinous process post which had in turn been rigidly clamped to the L4 spinous process. This spinous process had been previously exposed on initial dissection (described above) and was confirmed to be stable to palpation as well as to gentle [id number] stress application prior to use as the fixed anatomic reference point. Any previously placed packing sponges in the latter gutters were removed and accounted for. Prior to and following each O-Arm scan the surgical site was thoroughly irrigated with approximately 500 cc of antibiotic irrigant using manual bulb mechanical pulse lavage technique. The final irrigant was left to fill the surgical opening during the O-Arm scan so as to further cleanse and hydrate the tissues as well as to optimize scan image contrast and overall quality. With the operative field and reference frame sterilely covered, the O-Arm was brought into the room and positioned for optimal scan of the intended instrumentation levels. Sales Department Manager images confirmed optimal scan field and O-Arm scanner positioning with the location of all reference frame reflective markers detected by the Stealth tower. Prior to scan acquisition the O-Arm was noted to be non-functional. It was manually opened per protocol and over the required intermediate timeframe for such circumstances and was removed without having obtained any stereotactic data. The protective covering was removed from the operative field using proper technique to maintain surgical field sterility at all times. The surgical site was again thoroughly irrigated with 250 cc of antibiotic irrigant using manual pulse lavage technique prior to proceeding with pedicle screw placement using anatomic landmark and fluoroscopic site and trajectory guidance techniques. The six pedicle screws were placed bilaterally at L2, L3 and L4 using standard and identical, bilaterally symmetrical surgical technique. The entry point for the each pedicle screw was localized using standard anatomic landmarks for normal anatomy patients without deformity. Each screw entry site was placed at the confluence of the base of the transverse process just superior and lateral to the upper flare of the pars interarticularis of that level where it meets the inferolateral margin of the facet joint above it. Once the location of the entry site was determined, the cortex at that site was breached with the awl and a pedicle dissector was advanced through the pedicle into the anterior third of the vertebral body taking care not to angle too closely to the upper vertebral body endplate. Where necessary AP, lateral and pedicle oblique fluoroscopic images were used to determine or verify optimal entry point and trajectory. This defined pedicle screw path was then tapped with a 4.5 mm navigational tap bilaterally at the L2 sites and with a 5.5 mm navigational tap bilaterally at the L3 and L4 sites following the same trajectory. Initial screw length measurement was made off the tap depth markings. The screw path was palpated with a ball-tip probe to its base and along the koehler of the screw hole in all four quadrants with no deep or pedicle wall cortical breach detected. With the probe at the maximal depth of the screw hole a hemostat was applied to the probe at the screw entry site and the screw length measurement was confirmed by measuring from the clamp to the tip of the probe with a ruler. The tap and probe measurements were consistent in each case and screw length was then selected on the basis of those confirmed measurements. All six screw holes were dissected, tapped, checked for breach and measured before any of the screws were placed so that bilateral decortication of the posterobilateral osseous elements could be readily performed without access being blocked or limited by implanted hardware. Prior to final screw placement, the intertransverse spaces were thoroughly irrigated with 500 cc of antibiotic irrigant and the transverse processes, lateral facet complexes and pars interarticularis were decorticated bilaterally to punctate bleeding corticocancellous bone using the [employer] drill. For each screw site, the entry opening and trajectory was confirmed using the ball-tip probe, the appropriate size screw was then attached rigidly to the river driver and the screw was advanced at the previously defined entry site and trajectory with excellent insertional and final torque documented. Rigid final fixation was also documented with no loosening evident when posteriorly directed ("pull-out") force was applied with the river driver. The river driver was then removed and each implanted screw was confirmed to be in optimal position with mobile head to allow for final linda placement and fixation. This identical technique was used for placement of all six screws. Based on the above confirmed depth measurements, a [employer] system dual thread-pitch 60 mm length by 6.5 mm diameter pedicle screw was placed on the right at L4, a 55 mm length by 6.5 mm diameter screw was placed on the left at L4, 55 mm length by 6.5 mm diameter screws were placed bilaterally at L3 and 55 mm length by 5.5 mm diameter screws were placed bilaterally at L2. Each screw was tested using electrical stimulation and neurophysiological monitoring. All screws were found to have low conductance to exiting and traversing nerve roots well within standard and acceptable levels suggesting intact pedicle wall without cortical breach to or direct screw contact with adjacent neural structures. This confirmed the findings on intrapedicular palpation performed after tapping and prior to screw placement described above as well as visual inspection of the medial pedicle wall where accessable during determination of screw trajectory at the time of placement and on final assessment of neural element decompression prior to closure described below. Final screw position was documented to be optimal on multiplanar (AP, lateral and "axis-centered" pedicle oblique) fluoroscopic views. With the posterolateral osseous decortication completed and the pedicle screw instrumentation in place as described above, the posterobilateral fusion was then performed using standard technique prior to final interpedicular linda placement and fixation. All previously placed packing sponges were removed and accounted for. Final preparation for arthrodesis was performed with all residual soft tissue resected from the posterolateral elements down to the level of the intertransverse ligament which was preserved. The debrided posterolateral elements and spaces were again thoroughly irrigated using approximately 500 cc of Bacitracin irrigation via bulb lavage technique for the final time prior to grafting and final instrumentation. The intertransverse space was then gently packed on both sides with layers of graft beginning with the remaining cleaned and morselized autograft adjacent to the decorticated surfaces followed by one additional 6 cc container of Joinnus Anjali DBF (reconstituted with several milliliters of blood per recommended protocol) in order from deep-medial (closely approximating the decorticated structures) to superficial-lateral. All graft material was divided equally between the two sides and distributed evenly on each side across the two intended arthrodesis levels from L2 to L4. Care was taken to compress graft against the posterolateral decorticated structures for optimal ingrowth while avoiding any extension of graft deep (below the intertransverse membrane) or medial (close to the decompressed canal or foraminal openings) to the intended fusion bed so as to prevent any contact or impingement on the neural elements or other unintended structures. Precontoured Medtronic Solara system 4.75 mm diameter [place]-Chrome rods 60 mm in length were found to fit optimally on each side however it was felt that the overall local alignment of the fusion and global postural and mechanical alignment of the lumbar spine could be further optimized by contouring both rods into additional lordosis. This was performed without difficulty using the linda dye specifically designed for this purpose and achieved several degrees of additional lordotic curvature once the rods were in place and finally fixed to the screws. Following final contouring, the length of both rods was checked to insure that there was only minimal extension beyond the superior or inferior screw heads with no impingement on the upper or lower facet complex. The rods were placed so as to optimize hinduism of lordosis with the concavity of the linda contour oriented posteriorly. Set screws were placed over the rods in the heads of each screw taking care not to cross-thread. Prior to final tightening all neural elements including each exposed and decompressed foraminal nerve root exit zone was confirmed to have unimpeded passage by palpation with a nerve hook and [place] dissecting instrument. The alignment was felt to be further optimized by the addition of slight in-situ correction by applying slight compression betwen screws from caudal to cephalad during set screw maximal tightening and shear at preset torque per their design with the screw-linda interfaces fixed in this slightly compressed position (compression mode posterior construct). This inwkqzo-[id number]-[id number] construct combined with the anterior implants formed a rigid construct which resisted both translational and angular forces in the sagittal, coronal and axial planes by gentle intraoperative manual testing. After final fixation in compression mode each exposed foraminal opening was again checked with a [place] instrument passed above each decompressed nerve root and found to be widely patent with clear passage of the nerve root at each level on both sides. The retractors were removed and the superficial soft tissues were checked with no evidence of pressure changes or need for debridement. Continuous electrophysiological monitoring throughout the procedure showed no adverse changes at any point during the decompression, instrumentation, or at any other time during the case. Moderate correction of hypolordotic lumbar segmental (as well as lesser global lumbosacral regional) alignment was achieved by initial patient positioning, use of a lordotic intervertebral implant, and use of a posterior transvertebral screw-linda construct designed and implanted using techniques intended to restore anatomic lordotic alignment including in situ posterior compression between the screws on each side prior to final fixation. Although significant partial segmental and regional alignment correction was achieved into an improved lordotic sagittal curvature closer to normal anatomic alignment, given that the patient's neutral preoperative baseline spinal malalignment was not felt to constitute a clinically significant deformity, there was no formal deformity correction required for improved outcome in this case and so the achieved correction was considered a direct consequence and an included portion of the arthrodesis and instrumentation procedures rather than a distinct and separately designated deformity corrective procedure. Closure/Recovery - The surgical site was thoroughly irrigated and hemostasis was carefully achieved prior to closure. FloSeal (5 cc) was then placed in the bilateral epidural spaces to optimize the already well-controlled hemostasis. Several pieces of Thrombin-soaked Gelfoam were used to cover the hemilaminectomy and unroofed foraminotomy openings and placed over the dorsal and dorsolateral surfaces of the thecal sac and nerve root sleeves so as to minimize epidural fibrotic adhesions to the decompressed neural elements. Vancomycin powder (250 cc) was divided equally between the two posterolateral gutters and spread evenly overlying the arthrodesis bone graft on each side taking care to avoid placement close to the canal or unroofed foramina. Dual large bore subfascial DENEEN drains were placed with one on each side in the lateral intertransverse spaces and carried out through the superior wall of each side of the surgical site using trocars. Initial counts were correct prior to closure. The deep lumbar muscular layer was reapproximated using #0 Vicryl interrupted suture technique so as to minimize open subfascial space for hematoma collection. The fascial layer was reapproximated in a [id number]-qz-[id number] closure using #0 Vicryl interrupted, wzekwj-cq-wldam suture technique. The suprafacial tissues were thoroughly irrigated and the remaining Vancomycin powder (250 cc) was placed in the suprafascial plane prior to final superficial closure. The deep suprafascial closure was performed with #2-0 Vicryl interrupted, simple suture technique. The superficial subcutaneous layer was closed with #3-0 undyed Vicryl inverted, interrupted, simple sutures. The skin was closed using yuniel with the edges everted. A standard, sterile Xeroform dressing was placed, covered with folded 6x6 fluff gauze and ABD pads and held in place using Cover-Roll with good surgical site and bilateral drain site coverage. All counts were correct prior to removing the drapes. The patient was turned into the supine position on the hospital bed using careful log-roll technique, avoiding torsional stress and stabilizing the lumbar region during transfer. He was then extubated in the operating room without difficulty. Recovery Room Assessment: The patient was transported to the recovery room in stable condition where gross neurological examination showed normal function on initial recovery from anesthesia with no detected deficits or worsening compared to his pre-operative assessments. The patient will follow the usual postoperative protocol for mid- lumbar stenosis decompression, decompressive discectomy and multicolumn instrumented fusion with some adjustments and accommodations made to the standard protocol because of the multilevel degenerative changes at a young age and desire to return to a high level of function including vigorous work activities. His postoperative care plan will include early mobilization, IV and then weaning to oral medication pain control, and home discharge planning starting on postoperative day #1 or #2 with possible need for inpatient rehabilitation program. He will use a circumferential four-quadrant buttressed compression brace during the initial phase of healing for stability and to limit angular motion. Lower extremity (particularly gentle hip and knee) motion is encouraged to promote longitudinal nerve motion and minimize fibrotic neural tethering during the fibrous consolidation and motion segment stabilization healing phase. Once he is home, outpatient rehabilitation program will be arranged through the office to begin slowly but progressively at approximately 6 weeks after surgery assuming standard and uncomplicated postoperative course and following clearance at initial postoperative follow-up assessment. Given the multilevel nature of his lumbar procedure, use of allograft substitute osteopromotive material to augment arthrodesis graft and his desire to resume vigorous activity as quickly as possible while minimizing the risk of pseudoarthrosis, a spinal fusion osteogenesis stimulator is indicated and will be ordered, applied and followed through the office. Discharge Disposition: PACU CC: Aime CURTIS,Deanna Rouse; Ramez CURTIS,Donnie Pennington
[2017-11-02 23:07] VITALS: BP 88/50
[2017-11-03 01:04] VITALS: BP 108/72
[2017-11-03 05:05] VITALS: BP 114/68
--- NOTE | 2017-11-03 05:27 | PN- Orthopedic ---
Subjective Subjective: patient seen in PACU. family presents. He is comfortable answering questions and moving all extremities reports no numbness or weakness Review of Systems Constitutional: Denies: chills, fever, weakness. EENTM: Reports: eye pain (scleral edema from positioning). Cardiovascular: Denies: chest pain. Respiratory: Denies: cough, short of breath. Gastrointestinal: Denies: abdominal pain, nausea. Objective Vital Signs and I&Os Vital Signs Date Time Temp Pulse Resp B/P B/P Pulse O2 O2 Flow FiO2 Mean Ox Delivery Rate 11/03 0505 98.5 95 18 114/68 94 Room Air 11/03 0104 99.0 101 18 108/72 94 Room Air 11/03 0000 Room Air 11/02 2307 97.6 90 18 88/50 93 11/02 2047 97.8 92 18 106/60 97 Nasal Cannula 11/02 1807 Nasal 2.0L Cannula 11/02 180 97.7 82 16 104/62 97 Nasal 2.0L Cannula Intake & Output 11/03 0800 11/03 0000 11/02 1600 11/02 0800 11/02 0000 11/01 1600 Intake Total 540 Output Total 710 Balance -170 Intake, IV 300 Intake, Oral 240 Number 0 Bowel Movements Output, 235 Drainage Output, Urine 475 Patient 229 lb Weight Weight Reported by Patient Measurement Method Physical Exam: patient lying on stretcher alert and oriented pain controlled scleral edema and blepharitis neck supple NT chest - CTA symetric Heart- RRR without MRG Abd -sodt without distention, NT lumbar spine- fresh postop dressing placed with 2 drains -scant output milateral lower extremities - motor 5/5, sensory intact, feet warm Assessment/Plan Assessment/Plan post-op check 57 y/o male S/P L2-3, L3-4 TLIF, instrumented fusion D/C ro in am advance diet OOB with PT cont abx til drain pulled Core Measures Venous Thromboembolism VTE Risk Factors No risk factors No Mechanical VTE Prophylaxis d/t Early Ambulation No VTE Pharm Prophylaxis d/t Bleeding (Active)
--- NOTE | 2017-11-03 07:34 | PN- Neurosurgical ---
See Addendum Subjective Subjective: PT IN BED, MOD BACK PAIN COMTROLLED WITH PERCOCET AND MORPHINE. TOLERATING DIET. WILSON IN PLACE. HAS NOT AMBULATED YET. STILL HAS SOME NUMBNESS IN LEFT LOWER EXT AND RIGHT BIG TOE WHICH HE STATES HE HAD PORIOR TO SURGERY. DENIES CP/SOB, FEVERS, N/V. Objective Vital Signs and I&Os Vital Signs Date Time Temp Pulse Resp B/P B/P Pulse O2 O2 Flow FiO2 Mean Ox Delivery Rate 11/03 0505 98.5 95 18 114/68 94 Room Air 11/03 0104 99.0 101 18 108/72 94 Room Air 11/03 0000 Room Air 11/02 2307 97.6 90 18 88/50 93 11/02 2047 97.8 92 18 106/60 97 Nasal Cannula 11/02 180 Nasal 2.0L Cannula 11/02 1806 97.7 82 16 104/62 97 Nasal 2.0L Cannula Intake & Output 11/03 0800 11/03 0000 11/02 1600 11/02 0800 11/02 0000 11/01 1600 Intake Total 540 Output Total 550 710 Balance -550 -170 Intake, IV 300 Intake, Oral 240 Number 0 Bowel Movements Output, 235 Drainage Output, Urine 550 475 Patient 229 lb Weight Weight Reported by Patient Measurement Method Physical Exam: GEN- NAD RESP- CLEAR CARDIAC- RRR ABD- SOFT, NT, +BS BACK- DRESSING CLEAN AND DRY, DID NOT CHANGE. [address] WITH MINIMAL SEROSANG DRAINAGE IN EACH BULB. DRAIN OUTPUT WAS OVER 150CC OVERNIGHT FOR EACH DRAIN. NURSES TO DOCUMENT SPECIFIC AMOUNTS EXT- DISTAL MOTOR AND SENSORY FUNCTION INTACT. Current Medications: Current Medications Sig/Kamala Start time Last Medication Dose Route Stop Time Status Admin Acetaminophen 650 MG Q4P PRN 11/02 181 AC PO Atorvastatin Calcium 80 MG 1700 11/03 1700 AC PO Cefazolin Sodium 2 GM Q8H 11/02 2000 AC 11/03 N/A 1 UNIT IV 11/03 1958 0413 Dextrose/Sodium 1,000 ML .[id number] 11/02 1814 DC 11/03 Chloride IV 0706 Docusate Sodium 100 MG BID 11/02 2100 AC 11/02 PO 2130 Ezetimibe 10 MG DAILY 11/03 0900 AC PO Hydromorphone HCl 2 MG .STK-MED ONE 11/02 1737 DC IM 11/02 1738 Hydromorphone HCl 2 MG .STK-MED ONE 11/02 1654 DC IM 11/02 1655 Hydromorphone HCl 2 MG .STK-MED ONE 11/02 1628 DC IM 11/02 1629 Hydromorphone HCl 2 MG .STK-MED ONE 11/02 1612 DC IM 11/02 1613 Lisinopril 40 MG DAILY 11/03 0900 AC PO Metoprolol Succinate 25 MG DAILY 11/03 09 AC PO Morphine Sulfate 2 MG Q3P PRN 11/02 181 AC 11/03 IV 0504 Ondansetron HCl 4 MG Q6P PRN 11/02 181 AC IV Oxycodone/ 1 TAB Q4P PRN 11/02 181 AC Acetaminophen PO Oxycodone/ 2 TAB Q4P PRN 11/02 181 AC 11/03 Acetaminophen PO 0709 Remifentanil 1 MG .STK-MED ONE 11/02 1327 DC IV 11/02 1328 Tamsulosin HCl 0.4 MG DAILY 11/03 09 AC PO Results Last 48 Hours of Labs: Laboratory Tests 11/03 11/02 0656 1400 Hematology CBC w Diff Pending NO MAN DIFF REQ WBC (4.8 - 10.8 /CUMM) Pending 14.3 H RBC (4.70 - 6.10 /CUMM) Pending 4.18 L Hgb (14.0 - 18.0 G/DL) Pending 13.9 L Hct (42 - 52 %) Pending 40.6 L MCV (80.0 - 94.0 FL) Pending 97.0 H MCH (27.0 - 31.0 PG) Pending 33.2 H MCHC (33.0 - 37.0 G/DL) Pending 34.2 RDW (11.5 - 14.5 %) Pending 12.7 Plt Count (130 - 400 /CUMM) Pending 251 MPV (7.4 - 10.4 FL) Pending 7.5 Gran % (42.2 - 75.2 %) 94.2 H Lymphocytes % (20.5 - 51.1 %) 3.3 L Monocytes % (1.7 - 9.3 %) 2.3 Eosinophils % (0 - 5 %) 0.1 Basophils % (0.0 - 2.0 %) 0.1 Absolute Granulocytes (1.4 - 6.5 /CUMM) 13.5 H Absolute Lymphocytes (1.2 - 3.4 /CUMM) 0.5 L Absolute Monocytes (0.10 - 0.60 /CUMM) 0.3 Absolute Eosinophils (0.0 - 0.7 /CUMM) 0 Absolute Basophils (0.0 - 0.2 /CUMM) 0 Assessment/Plan Assessment/Plan 57YO M SP L2-L4 DECOMPRESSION/FUSION POD1 WITH [address]. STABLE DC WILSON LEAVE DRAINS IN PLACE- CONT UNASYN UNTIL BOTH DRAINS OUT WILL ADD MUSCLE RELAXER - VALIUM 5-10 Q6-8 PRN OOB WITH PT TODAY REG DIET DRESSING CHANGE POD2 WILL DISCUSS WITH LUIS Core Measures Venous Thromboembolism VTE Risk Factors No risk factors No Mechanical VTE Prophylaxis d/t Early Ambulation No VTE Pharm Prophylaxis d/t Bleeding (Active)
[2017-11-03 08:10] LABS: ABSOLUTE BASOPHIL COUNT 0 /CUMM (0.0-0.2); ABSOLUTE EOSINOPHIL COUNT 0 /CUMM (0.0-0.7); MEAN CORPUSCULAR HGB 33.1 PG (27.0-31.0)
--- NOTE | 2017-11-03 08:38 | PN- Neurosurgical ---
Surgical Brief Attending Note Brief Attending Note: POD#1 AVSS moderate but tolerated LBP improved leg pain,some residual tingling no deficit incision c and d doing quite well increase activity
[2017-11-03 08:50] LABS: ABSOLUTE GRANULOCYTE CT 9.1 /CUMM (1.4-6.5); ABSOLUTE LYMPH COUNT 1.3 /CUMM (1.2-3.4); ABSOLUTE MONOCYTE COUNT 1.1 /CUMM (0.10-0.60); BASOPHIL % 0.4 % (0.0-2.0); EOSINOPHIL % 0.3 % (0-5); GRANULOCYTE % 78.5 % (42.2-75.2); MEAN CORPUSCULAR VOLUME 97.6 FL (80.0-94.0); MEAN PLATELET VOLUME 8.4 FL (7.4-10.4); PLATELET COUNT 157 /CUMM (130-400); RBC DISTRIBUTION WIDTH 12.9 % (11.5-14.5); RED BLOOD CELL CT 3.63 /CUMM (4.70-6.10); WHITE BLOOD CELL COUNT 11.6 /CUMM (4.8-10.8)
[2017-11-03 08:59] LABS: HEMATOCRIT 35.4 % (42-52)
[2017-11-03 09:52] VITALS: BP 102/50
[2017-11-03 16:59] VITALS: BP 106/60
[2017-11-03 22:29] VITALS: BP 120/64
[2017-11-04 02:01] VITALS: BP 142/80
[2017-11-04 06:20] VITALS: BP 136/78
--- NOTE | 2017-11-04 07:44 | PN- Orthopedic ---
Subjective Subjective: No acute overnight events reported. Pt has reports of pain when moving but is otherwise able to rest comfortably. Denies radicular symptoms to bilateral lower extremities. Noted some transient nausea without emesis last night, denied being able to pass flatus. Was able to void without difficulty 4 times overnight. Specifically denies chest pain, shortness of breath, dizziness and difficulty breathing. Is anticipating getting oob today and ambulating. Objective Vital Signs and I&Os Vital Signs Date Time Temp Pulse Resp B/P B/P Pulse O2 O2 Flow FiO2 Mean Ox Delivery Rate 11/04 0620 98.9 114 20 136/78 92 Room Air 11/04 0201 98.6 95 18 142/80 94 Room Air 11/04 0000 Room Air 11/03 2229 98.2 100 20 120/64 92 11/03 1659 98.6 90 20 106/60 92 11/03 1346 97.5 98 20 93 Room Air 11/03 1017 92 11/03 0952 102/50 11/03 0920 97.5 100 20 94 Room Air 11/03 0808 114/68 11/03 0808 114/68 /15 0808 114/68 Intake & Output 11/04 0800 /16 0000 15 1600 /15 0800 05/15 0000 14 1600 Intake Total 400 465 600 540 Output Total 945 298 126 4802 710 Balance -945 25 -205 -1160 -170 Intake, IV 225 600 300 Intake, Oral 400 240 240 Number 0 0 Bowel Movements Output, 95 75 70 185 235 Drainage Output, Urine 850 [id number] 475 Patient 229 lb Weight Weight Reported by Patient Measurement Method Physical Exam: General: Alert and oriented x3, no acute distress Cardiac: tachycardic, s1s2 Pulm: CTA bilaterally, non-labored respiratory effort Abd: Non-tender, non-distended Extremities: Moves all extremities, distal sesnation and neurovascular status grossly intact. Bilateral calves soft and non-tender DENEEN x2 holding suction, serosanguinous drainage noted Assessment/Plan Assessment/Plan This is a 57 year old male, POD 2, s/p L 2-4 decompression with fusion. PMH sig for htn, bph, lipids. -Ancef 2g q8h while drains in, Dr. Salomon to determine drain removal -OOB, wbat -Diet as leonardo -Wean iv pain meds, transition to strict oral -ALPS for dvt ppx -Watch vitals, hr elevated and o2 at 92 on room air, pt asymptomatic, is on beta dino, due for am dose, if no resolution will work up -Will discuss plan of care with Dr. Salomon Core Measures Venous Thromboembolism VTE Risk Factors No risk factors No Mechanical VTE Prophylaxis d/t Early Ambulation No VTE Pharm Prophylaxis d/t Bleeding (Active)
--- NOTE | 2017-11-04 08:54 | PN- Neurosurgical ---
Surgical Brief Attending Note Brief Attending Note: pod#2 SLIGHT DECREASE IN lbp BUT C/O SPASM HELPED BY VALIUM no motor or sensory deficits has ambulated but not done stairs yet increase activity drains per perhaps d/c tomorrow?
[2017-11-04 08:56] LABS: ABSOLUTE BASOPHIL COUNT 0 /CUMM (0.0-0.2); ABSOLUTE EOSINOPHIL COUNT 0 /CUMM (0.0-0.7); ABSOLUTE GRANULOCYTE CT 9.9 /CUMM (1.4-6.5); ABSOLUTE LYMPH COUNT 0.9 /CUMM (1.2-3.4); ABSOLUTE MONOCYTE COUNT 1.3 /CUMM (0.10-0.60); BASOPHIL % 0.2 % (0.0-2.0); EOSINOPHIL % 0.3 % (0-5); GRANULOCYTE % 81.5 % (42.2-75.2); HEMATOCRIT 33.1 % (42-52); MEAN CORPUSCULAR HGB 32.9 PG (27.0-31.0); MEAN CORPUSCULAR HGB CONC 33.5 G/DL (33.0-37.0); MEAN CORPUSCULAR VOLUME 98.1 FL (80.0-94.0); MEAN PLATELET VOLUME 7.9 FL (7.4-10.4); PLATELET COUNT 184 /CUMM (130-400); RBC DISTRIBUTION WIDTH 13.2 % (11.5-14.5); RED BLOOD CELL CT 3.38 /CUMM (4.70-6.10); WHITE BLOOD CELL COUNT 12.1 /CUMM (4.8-10.8)
[2017-11-04 10:17] VITALS: BP 118/82
[2017-11-04 13:34] VITALS: BP 124/82
[2017-11-04 22:33] VITALS: BP 122/80
[2017-11-05 06:23] VITALS: BP 120/80
--- NOTE | 2017-11-05 08:33 | PN- Orthopedic ---
Subjective Subjective: No acute overnight events reported. Pain not worsening. Denies numbness and tingling down bilateral lower extremities but acknowledges some discomfort to lateral aspect of bilateral hips similar in qualitiy to preoperative pain. He has been voiding without difficulty. He had some nausea without emesis last night and some abdominal distension. He was able to pass flatus but has yet to move bowels. He denies chest pain, shortness of breath and difficulty breathing. He has been ambulatory but having difficulty getting in and out of bed. Objective Vital Signs and I&Os Vital Signs Date Time Temp Pulse Resp B/P B/P Pulse O2 O2 Flow FiO2 Mean Ox Delivery Rate 11/05 0803 78 112/78 11/05 0803 100 112/78 11/05 0802 100 112/11/05 0623 98.2 100 18 120/80 92 Room Air 11/04 2233 98.9 105 19 122/80 94 Room Air 11/04 1334 98.1 104 16 124/82 94 11/04 1017 97.7 120 20 118/82 94 Room Air 11/04 0845 92 110/80 11/04 0845 92 110/80 11/04 0845 92 110/80 Intake & Output 11/05 1600 11/05 0800 11/05 0000 11/04 1600 11/04 0800 11/04 0000 Intake Total 500 360 400 Output Total 315 540 430 945 375 Balance -315 -40 -70 -945 25 Intake, IV 50 Intake, Oral 450 360 400 Number 0 Bowel Movements Output, 65 40 80 95 75 Drainage Output, Urine 250 500 350 850 300 Physical Exam: General: Alert and oriented x3, no acute distress Cardiac: RRR, s1s2 Pulm: C T A bilaterally Abd: Softly distended, non-tender Extremities: Moves all extremities, distal sensation grossly intact. Distal pulses palpable, skin warm and well perfused. Motor 5/5 in plantar and dorsi flexion. Bilateral calves soft and non-tender. JPx2 holding suction, serosanguinous drainage, 65 cc reported combined () overnight. Assessment/Plan Assessment/Plan This is a 57 year old male, POD 3 s/p L 2-4 decompression with fusion. -Continue drains until further evaluated by Dr. Salomon -Discussed with Dr. Salomon who states he will change dressing today and eval drains -OOB, as tolerated -Continue alps for dvt ppx -Change percocet to vicodin, may resolve nausea -Schedule bowel regimen Core Measures Venous Thromboembolism VTE Risk Factors No risk factors No Mechanical VTE Prophylaxis d/t Early Ambulation No VTE Pharm Prophylaxis d/t Bleeding (Active)
[2017-11-05 14:24] VITALS: BP 120/60
[2017-11-05 21:33] VITALS: BP 114/80
[2017-11-06 06:37] VITALS: BP 114/80
--- NOTE | 2017-11-06 11:02 | PN- Orthopedic ---
Surgical Brief Attending Note Brief Attending Note: rounded on this patient himself this morning. He reported the following plan: bowel regime (dulcolax and enema if needed) d/c ancef (drains were apparently removed by yesterday) d/c home today after +bm
[2017-11-06 13:47] VITALS: BP 100/68
--- NOTE | 2017-11-06 14:45 | Surg Short-stay <48hrs Dis Sum ---
Visit Information Visit Dates Admission Date: 11/02/17 Discharge Date: 11/06/17 Surgical Short Stay DC Summary Admission Diagnosis: Lumbar spinal stenosis L2-3, L3-4 Final Diagnosis: SAME ABOVE, S/P L2-L4 DECOMPRESSION/FUSION Procedure(s): Surgery Date: 11/02/17 Name of Procedure: #1 decompressive lumbar laminectomy L2 3 L3 4 #2 left medial facetectomy L2-3 right L3 4 #3 preparation of space for fusion L2-3 #4 insertion of cage L23 As secondary #5 preparation of space for fusion L3 4 #6 insertion of cage L3 4 right sided #7 stealth registration #8 stealth guided insertion of pedicle screws L2 L3-L4 bilateral #9 bilateral arthrodesis L2 through L4 #10 installation of vancomycin powder Summary/Significant Findings: Electively scheduled L2-L4 DECOMPRESSION/FUSION for history of lumbar spinal stenosis L2-3, L3-4 by and on 11/02/17 for history of lumbar spinal stenosis L2-3, L3-4. DENEEN drains left in place, with antibiotics continued until the drains were removed on 11/05/17. Pain control transitioned from iv to oral medication. Given multiple medications for constipation, and finally had a bm on 11/06/17. Stable for discharge to home on 11/06/17, as per , following +bm. Condition at Discharge: stable Discharge Disposition: home or self care Discharge instructions provided to patient/family: Yes Post discharge follow-up plan: follow up with in one week follow up with in two weeks Copies to: Michelle CURTIS,Vega Myrick MD,Donnie Pennington
--- NOTE | 2017-11-06 14:57 | Patient Discharge Instructions ---
Discharge Instructions General Discharge Information You were seen/treated for: Lumbar spinal stenosis L2-3, L3-4 You had these procedures: Surgery Date: 11/02/17 Name of Procedure: #1 decompressive lumbar laminectomy L2 3 L3 4 #2 left medial facetectomy L2-3 right L3 4 #3 preparation of space for fusion L2-3 #4 insertion of cage L23 As secondary #5 preparation of space for fusion L3 4 #6 insertion of cage L3 4 right sided #7 stealth registration #8 stealth guided insertion of pedicle screws L2 L3-L4 bilateral #9 bilateral arthrodesis L2 through L4 #10 installation of vancomycin powder Watch for these problems: fever>101.3, increased pain, redness/swelling/drainage, dizziness, shortness of breath, chest pains Call Surgeon to remove: [place] No bath, but you may shower: Yes Other wound care: shower with occlusive dressing Diet Continue normal diet: Yes Recommended Diet: Regular Activity Full Activity/No Limits: No Activity Self Limited: Yes Pounds, do NOT lift more than: 10 Activity Limited to: Weight bear as tolerated Other activity limits: out of bed with back brace Acute Coronary Syndrome Inclusion Criteria At DC or during hospital stay patient has or had the following: ACS DIAGNOSIS No Discharge Core Measures Meds if any: Prescribed or Continued at Discharge Meds if any: NOT Prescribed or Continued at Discharge Congestive Heart Failure Inclusion Criteria At DC or during hospital stay patient has or had the following: CHF DIAGNOSIS No Discharge Core Measures Meds if any: Prescribed or Continued at Discharge Meds if any: NOT Prescribed or Continued at Discharge Cerebrovascular accident Inclusion Criteria At DC or during hospital stay patient has or had the following: CVA/TIA Diagnosis No Discharge Core Measures Meds if any: Prescribed or Continued at Discharge Meds if any: NOT Prescribed or Continued at Discharge Venous thromboembolism Inclusion Criteria VTE Diagnosis No VTE Type NONE VTE Confirmed by (Test) NONE Discharge Core Measures - Per Current guidelines, there needs to be overlap - treatment for the first 5 days of Warfarin therapy. - If discharged on Warfarin prior to 5 days of - overlap therapy, the patient will need to be - assessed for post discharge needs including - *Post discharge parental anticoagulation - *Warfarin and/or parental anticoagulation education - *Follow up date to check INR post discharge At least 5 days overlap therapy as Inpatient No Meds if any: Prescribed or Continued at Discharge Note: Overlap Therapy is Warfarin and Anticoagulant Meds if any: NOT Prescribed or Continued at Discharge
[2017-11-06] MEDS ORDERED: DOCUSATE SODIU100 M3 PO (15:09)
[2017-11-06] MEDS ORDERED: NORCO 5-325 TA1 EACH PO (15:09)
[2017-11-06] MEDS ORDERED: VALIUM5 M2 PO (15:09)
== END 2017-11-06 17:00 | DRG 460 ==
LOC: SDA 01:22 → 2NA 01:22 → ENRESERV 16:21 → ENTRNSPT 17:34 → EDTRNSPTSTS 17:52 → CMPTRNSPT 18:06 → 2NA 18:08 → ENPENDDIS 11-06 14:53 → 2NA 11-06 17:00
PROVIDERS: Orthopaedic Surgery Orthopaedic Surgery of the Spine; Physician Assistant Surgical
PROC: 00NY0ZZ Release Lumbar Spinal Cord, Open Approach (ICD-10-PCS; principal; 2017-11-02)
PROC: 0SG10AJ Fusion of 2 or more Lumbar Vertebral Joints with Interbody Fusion Device, Posterior Approach, Anterior Column, Open Approach (ICD-10-PCS; principal; 2017-11-02)
PROC: 3E0T3BZ Introduction of Anesthetic Agent into Peripheral Nerves and Plexi, Percutaneous Approach (ICD-10-PCS; principal; 2017-11-02)
PROC: 0ST20ZZ Resection of Lumbar Vertebral Disc, Open Approach (ICD-10-PCS; principal; 2017-11-02)
PROC: 3E0T33Z Introduction of Anti-inflammatory into Peripheral Nerves and Plexi, Percutaneous Approach (ICD-10-PCS; principal; 2017-11-02)
DX: M51.16 Intervertebral disc disorders with radiculopathy, lumbar region (principal); M47.26 Other spondylosis with radiculopathy, lumbar region; E78.5 Hyperlipidemia, unspecified; I10 Essential (primary) hypertension; N40.0 Benign prostatic hyperplasia without lower urinary tract symptoms; K21.9 Gastro-esophageal reflux disease without esophagitis; Z87.891 Personal history of nicotine dependence; E66.9 Obesity, unspecified; Z68.33 Body mass index [BMI] 33.0-33.9, adult
CPT/HCPCS: 2NASP; 36415; 36592; 72100; 87086; 88304; 97110-GO; 97116-GO; 97161-GP; 97530-GO; C1713; C9399; J0131; J0690; J1644; J2405; J3370; J7042